=== PATIENT | female | born 2000 | race Caucasian/White ===

== ENCOUNTER 2020-04-15 17:26 | Inpatient (IN) | payer OTHER ==
[~2020-04-15 17:26] MED LIST: ANTIVERT25 MG PO; MOTRIN600 MG PO
[2020-04-15 19:26] LABS: CORONAVIRUS 2019 SARS-COV-2 NEGATIVE (NEGATIVE); INFLUENZA A NAA NEGATIVE (NEGATIVE)
[2020-04-15 21:19] LABS: HCT 35.6 % (37.0-47.0); HGB 11.9 g/dl (12.5-16.0); MCH 30.4 pg (25.0-31.0); MCHC 33.4 g/dL (32.0-36.0); MCV 90.8 fL (78.0-100.0); MPV 12.5 fL (6.0-9.5); RBC 3.92 M/uL (4.20-5.40); RDW 16.6 % (11.5-14.0); WBC 11.8 K/uL (4.0-10.5)
[2020-04-15 21:20] LABS: BILIRUBIN NEGATIVE (NEGATIVE); BLOOD NEGATIVE Ery/uL (NEGATIVE); CLARITY CLEAR (CLEAR); COLOR YELLOW (YELLOW); GLUCOSE (U) NORMAL (NORMAL); LEUKOCYTES TRACE Leu/uL (NEGATIVE); NITRITE NEGATIVE (NEGATIVE); PROTEIN NEGATIVE (NEGATIVE); UROBILINOGEN 0.2 mg/dL (0.2-1.0)
[2020-04-15 21:29] LABS: BACTERIA 1+; SQUAMOUS EPITHELIAL CELLS >50
[2020-04-15 21:39] LABS: AMPHETAMINES NEGATIVE (NEGATIVE); BARBITURATES NEGATIVE (NEGATIVE); ECSTASY (MDMA) NEGATIVE (NEGATIVE); MARIJUANA (THC) NEGATIVE (NEGATIVE); METHADONE NEGATIVE (NEGATIVE); OPIATES NEGATIVE (NEGATIVE); OXYCODONE NEGATIVE (NEGATIVE)
[2020-04-18 06:10] LABS: HCT 33.6 % (37.0-47.0); HGB 10.8 g/dl (12.5-16.0); MCH 29.7 pg (25.0-31.0); MCHC 32.1 g/dL (32.0-36.0); MCV 92.3 fL (78.0-100.0); MPV 12.9 fL (6.0-9.5); RBC 3.64 M/uL (4.20-5.40); RDW 16.6 % (11.5-14.0); WBC 13.8 K/uL (4.0-10.5)
--- NOTE | 2020-04-18 10:41 | NUR ---
REFERRAL RECEIVED MOM POS FOR COCAINE ON 09/17/2019. NO OTHER POS DRUG SCREENS THORUGHOUT PREGNACY OR UPON DELIVERY. PT. STATED THAT SHE DID USE COCAINE PRIOR TO KNOWING SHE WAS . AFTER SHE FOUND OUT SHE WAS , SHE STOPPED USING. SHE STATES THAT THE FOB IS CUREENTLY INCARCERATED, BUT SHE WISHES TO ESTABLISH PATERNITY. THE FOB IS PAUL REED AGE 22. THIS IS HIS 5 OR 6 CHILD. THIS INFANT IS THE MOTHER'S FIRT CHILD. SHE STATES THAT SHE COMPLETED HIGH SCHOOL, BUT AT THIS TIME HAS NO DESIRE TO PURSUE FURTHER EDUCATION. SHE IS NOT EMPLOYED. SHE RESIDES IN SUBSDIZED HOUSING. SHE LIVES IN A ONE BEDROOM APT WITH MODERN CONVIENCES. SHE STATES THAT HER MOTHER RESIDES ACROSS THE STREET FROM HER AND IS A GREAT HELP. SHE STATED THAT SHE DID HAVE A SCUICIDE ATTEMPT WHEN SHE WAS A TEENAGER, DUE TO DEPRESSION AND ANXIETY. SHE WAS PRESCRIBED ANTIDEPRESSANTS AND HAD THERAPY AT THE DR. PORTILLO OFFICE, WHO IS A VAMP CUT OUT WORKER. PT. STOPPED HER ANTIDEPRESSANT DURING HER PREGANCY, BUT WILL RESUME HER MEDICATION. MOTHER HAS PARTICIPATED IN THE HANDS PROGRAM DURING HER , BUT SHE FELT THAT THE HANDS WORKER WAS JUDGEMENTAL OF THE FATHER AND SHE STOPPED THE PROGRAM. SHE STATES THAT SHE HAS APPROPRIATE BABY SUPPLIES AND IS COMFORTABLE WITH SHEET ROCK FINISHER. SHE RECIEVES WIC, AND FOOD STAMPS. A LIST OF COMMUNITY RESOURCES WAS GIVEN TO PATIENT. SHE STATES THAT SHE HAS A GOOD SUPPORT SYSTEM. SHE APPEARED VERY BONDED WITH THE BABY SHE WAS HOLDING HER AND TALKING TO HER. THE NURSE, ERICA, DID NOT HAVE ANY CONCERNS REGARDING HER BONDING OR CARE OF THE BABY. NO CHILD PROTECTIVE REPORT WAS MADE THIS WAS 7 MONTHS AGO AND THERE WAS ONLY ONE INCIDENT. MOTHER WAS NEGATIVE ON ALL OTHER DRUG SCREENS AND UPON DELIVER.
== END 2020-04-18 16:10 | disposition home or self-care (01) | DRG 806 ==
LOC: FOD 17:26 → FOB 17:27 → FOD 18:19 → FOB 18:20
PROVIDERS: ADMIT Obstetrics & Gynecology
PROC: 3E0P7VZ Introduction of Hormone into Female Reproductive, Via Natural or Artificial Opening (ICD-10-PCS; 2020-04-15)
PROC: 4A1HX4Z Monitoring of Products of Conception, Cardiac Electrical Activity, External Approach (ICD-10-PCS; 2020-04-15)
PROC: 10E0XZZ Delivery of Products of Conception, External Approach (ICD-10-PCS; principal; 2020-04-17)
PROC: 0HQ9XZZ Repair Perineum Skin, External Approach (ICD-10-PCS; 2020-04-17)
DX: O99.02 Anemia complicating childbirth (principal); D62 Acute posthemorrhagic anemia; Z37.0 Single live birth; O70.0 First degree perineal laceration during delivery; Z3A.39 39 weeks gestation of pregnancy; Z20.822 Contact with and (suspected) exposure to COVID-19; Z79.899 Other long term (current) drug therapy
CPT/HCPCS: 36415; 80305; 81001; 84112; J0595; J2405; J7120; U0002

== ENCOUNTER 2020-12-09 22:13 | Emergency (ER) | payer OTHER | END 2020-12-09 23:45 | disposition home or self-care (01) | LOC: FER 22:13 | DX: S93.601A Unspecified sprain of right foot, initial encounter (principal); W17.2XXA Fall into hole, initial encounter; Y92.009 Unspecified place in unspecified non-institutional (private) residence as the place of occurrence of the external cause | CPT/HCPCS: 73620 ==